=== PATIENT | female | born 1950 | race Caucasian/White ===

== ENCOUNTER 2019-02-22 04:09 | Emergency (ER) | payer OTHER, BC ==
[~2019-02-22] VITALS: Ht 165.1 cm; Wt 68.0 kg
[~2019-02-22 04:09] MED LIST: AMBIEN 10 MG TA10 MG PO; ATENOLOL 50 MG50 M1 PO; ATIVAN1 MG PO; CYMBALTA30 MG PO; DIOVAN160 MG PO; OXYCONTIN40 MG PO; PROMETHAZINE12.5 M1 PO; ROXICODONE5 M1 PO
[2019-02-22 04:15] VITALS: BP 189/87
== END 2019-02-22 04:44 | disposition home or self-care (01) ==
LOC: ER 04:09
DX: S20.369A Insect bite (nonvenomous) of unspecified front wall of thorax, initial encounter (principal); I10 Essential (primary) hypertension; M79.7 Fibromyalgia; F41.9 Anxiety disorder, unspecified; G89.29 Other chronic pain; Z98.890 Other specified postprocedural states; Z88.8 Allergy status to other drugs, medicaments and biological substances; W57.XXXA Bitten or stung by nonvenomous insect and other nonvenomous arthropods, initial encounter; Y92.89 Other specified places as the place of occurrence of the external cause; Y93.89 Activity, other specified; Y99.8 Other external cause status

== ENCOUNTER 2019-08-31 18:21 | Emergency (ER) | payer OTHER, BC ==
[~2019-08-31] VITALS: Ht 162.6 cm; Wt 65.8 kg
[2019-08-31 20:59] VITALS: BP 191/88
== END 2019-08-31 21:10 | disposition home or self-care (01) ==
LOC: ER 18:21
DX: S40.021A Contusion of right upper arm, initial encounter (principal); I10 Essential (primary) hypertension; M79.7 Fibromyalgia; Z88.8 Allergy status to other drugs, medicaments and biological substances; X58.XXXA Exposure to other specified factors, initial encounter; Y93.89 Activity, other specified; Y92.89 Other specified places as the place of occurrence of the external cause; Y99.8 Other external cause status